=== PATIENT | male | born 1960 | race Caucasian/White ===

== ENCOUNTER 2016-10-06 09:41 | Inpatient (IN) | payer BC ==
[~2016-10-06] VITALS: Ht 170.2 cm; Wt 117.9 kg
--- NOTE | 2016-10-06 10:06 | RADRPT ---
PROCEDURE: CT Brain without. CLINICAL INDICATION: Acute neurological deficit. Facial droop and slurred speech. TECHNIQUE: A CT of the brain was performed on multidetector high-resolution CT scanner utilizing a xial sections from the skull base through the vertex without contrast. The scan was reviewed in sof t tissue brain and high frequency resolution bone algorithm windows. Images were reviewed on a high -resolution PACS workstation. One or more the following does reduction techniques were utilized: Aut omated exposure control, adjustment of the mA/ or kV according to patient's size, or use of iterativ e reconstruction technique. The exam CTDI = 42.3 mGy and the DLP = 720.23 mGy-cm. COMPARISON: None available. FINDINGS: There are subtle hypoattenuated areas in the left subinsular region in the left frontal operculum co ncerning for recent infarcts. The ventricles and sulci are mildly prominent indicative of volume loss. There is no intracranial he morrhage, mass effect or midline shift. No abnormal intra-axial or extra-axial fluid collections ar e seen. There are mild scattered foci of hypoattenuation in the white matter, which are nonspecific in etiol ogy but likely reflect chronic small vessel ischemic changes. There are mild intracranial vascular calcifications consistent with atherosclerosis. The visualized paranasal sinuses are essentially omkar ar. IMPRESSION: 1. Subtle hypoattenuated areas in the left subinsular region in the left frontal operculum concerni ng for recent infarcts. Consider brain MRI and CTA for further evaluation. 2. Mild intracranial atherosclerosis and chronic small vessel ischemic changes. 3. Mild generalized cerebral volume loss. A call report was made and above findings were discussed and acknowledged by Dr. ROSENDO POE on 10/06/2016 10:00 AM . RPTAT: HFN .Tanika Miranda MD, MD Date Time Electronically viewed and signed by .Tanika Miranda MD, MD on 10/06/2016 10:06 .N/
[2016-10-06 10:25] LABS: ADD SCAN DIFF NO
[2016-10-06] MEDS ORDERED: ASPIRIN 325 MG TAB PO ONE (10:30)
[2016-10-06 10:31] LABS: BASOPHILS % 0.3 % (0.0-2.0); EOSINOPHILS # 0.2 10^3/ul (0.0-0.5); EOSINOPHILS % 2.4 % (0.0-7.0); HEMATOCRIT 46.3 % (42.0-52.0); HEMOGLOBIN 14.9 g/dl (14.0-18.0); LYMPHOCYTES # 1.6 10^3/ul (0.8-2.9); LYMPHOCYTES % 18.2 % (15.0-51.0); MEAN CORPUSCULAR HEMOGLOBIN 28.5 pg (29.0-33.0); MEAN CORPUSCULAR HGB CONC 32.2 g/dl (32.0-37.0); MEAN CORPUSCULAR VOLUME 88.5 fl (82.0-101.0); MEAN PLATELET VOLUME 10.6 fl (7.4-10.4); MONOCYTE # 0.5 10^3/ul (0.3-0.9); MONOCYTES % 6.2 % (0.0-11.0); NEUTROPHIL # 6.3 10^3/ul (1.6-7.5); NEUTROPHILS % 72.2 % (39.0-77.0); PLATELET COUNT 328 10^3/UL (140-415); RED BLOOD COUNT 5.23 10^6/ul (4.70-6.10); RED CELL DISTRIBUTION WIDTH 13.9 % (11.5-14.5); WHITE BLOOD COUNT 8.7 10^3/ul (4.8-10.8)
[2016-10-06 10:41] LABS: BLOOD UREA NITROGEN 14 mg/dl (7-20); CALCIUM 9.4 mg/dl (8.4-10.2); CARBON DIOXIDE 30 mmol/L (21-31); GLUCOSE 144 mg/dl (70-220); POTASSIUM 4.4 mmol/L (3.5-5.1); SODIUM 140 mmol/L (135-144)
--- NOTE | 2016-10-06 10:59 | RADRPT ---
PROCEDURE: CHEST 1VW CLINICAL INDICATION: Possible stroke TECHNIQUE: Single frontal view of the chest was obtained COMPARISON: None. FINDINGS: The cardiac size is normal. Aortic vascular calcifications are demonstrated. There is no pulmonary vascular congestion. The lungs are clear. No consolidation, effusion, or pneumothorax. Mild degenerative changes of the visualized osseous structures are visualized. IMPRESSION: 1. No acute cardiopulmonary process. 2. Atherosclerosis. RPTAT:PP .Ameya Darden MD, MD Date Time Electronically viewed and signed by .Ameya Darden MD, on 10/06/2016 10:58 .V/
[2016-10-06 11:02] LABS: ANION GAP 13 (8-16); CHLORIDE 101 mmol/L (97-110)
[2016-10-06] MEDS ORDERED: LISI20TA11 PO (11:03)
[2016-10-06] MEDS ORDERED: CLOP75TA27 PO (11:04)
[2016-10-06] MEDS ORDERED: AMLO-147 PO (11:04)
[2016-10-06] MEDS ORDERED: FURO40TA4 PO (11:06)
[2016-10-06] MEDS ORDERED: MTF1000T PO (11:07)
[2016-10-06] MEDS ORDERED: POTA20TA96 PO (11:07)
[2016-10-06] MEDS ORDERED: POTA-57 PO (11:07)
[2016-10-06] MEDS ORDERED: DAPA10TA PO (11:08)
[2016-10-06] MEDS ORDERED: HYDR-3672 PO (11:08)
[2016-10-06] MEDS ORDERED: CLON-379 PO (11:08)
[2016-10-06] MEDS ORDERED: GLIP-95 PO (11:08)
[2016-10-06 11:13] LABS: INR 0.79; PT RATIO 0.9
[2016-10-06 11:19] LABS: PARTIAL THROMBOPLASTIN TIME 27.1 Sec (25.0-35.0)
[2016-10-06 11:25] LABS: TROPONIN-I < 0.012 ng/ml (0.00-0.12)
[2016-10-06] MEDS ORDERED: ONDANSETRON 4 MG INJ IV PRN ×2 (11:30→15:30)
[2016-10-06] MEDS ORDERED: ACETAMINOPHEN 325 MG TAB PO PRN (11:30)
--- NOTE | 2016-10-06 11:35 | STROKE ---
Date/Time of Note Date/Time of Note DATE: 10/06/16 TIME: 11:28 Patient Information General Patient location: emergency Arrival Date Age 55 Gender male Weight 100 kg Vital Signs Vital Signs Vital Signs Date Time Temp Pulse Resp B/P Pulse Ox O2 Delivery O2 Flow Rate FiO2 10/06/16 10:32 Nasal Cannula 2 10/06/16 09:58 72 20 133/78 99 10/06/16 09:48 98.1 Patient History Past Medical History Stroke, Diabetes, Hypertension Current Medications Allergies: Coded Allergies: Penicillins (Verified Allergy, Severe, 10/06/16) Labs Hematology Labs Hematology Test 10/06/16 10:17 White Blood Count 8.710^3/ul (4.8-10.8) Red Blood Count 5.2310^6/ul (4.70-6.10) Hemoglobin 14.9g/dl (14.0-18.0) Hematocrit 46.3% (42.0-52.0) Mean Corpuscular Volume 88.5fl (82.0-101.0) Mean Corpuscular Hemoglobin 28.5pg (29.0-33.0) Mean Corpuscular Hemoglobin Concent 32.2g/dl (32.0-37.0) Red Cell Distribution Width 13.9% (11.5-14.5) Platelet Count 19840^3/UL (140-415) Mean Platelet Volume 10.6fl (7.4-10.4) Neutrophils % 72.2% (39.0-77.0) Lymphocytes % 18.2% (15.0-51.0) Monocytes % 6.2% (0.0-11.0) Eosinophils % 2.4% (0.0-7.0) Basophils % 0.3% (0.0-2.0) Nucleated Red Blood Cells % 0.0/100WBC (0.0-0.0) Neutrophils # 6.310^3/ul (1.6-7.5) Lymphocytes # 1.610^3/ul (0.8-2.9) Monocytes # 0.510^3/ul (0.3-0.9) Eosinophils # 0.210^3/ul (0.0-0.5) Basophils # 0.010^3/ul (0.0-0.1) Nucleated Red Blood Cells # 0.010^3/ul (0.0-0.0) Chemistry Labs Chemistry Test 10/06/16 10:17 Sodium Level 140mmol/L (135-144) Potassium Level 4.4mmol/L (3.5-5.1) Chloride Level 101mmol/L (97-110) Carbon Dioxide Level 30mmol/L (21-31) Anion Gap 13 (8-16) Blood Urea Nitrogen 14mg/dl (7-20) Creatinine 1.00mg/dl (0.61-1.24) Glucose Level 144mg/dl (70-220) Calcium Level 9.4mg/dl (8.4-10.2) Troponin I < 0.012ng/ml (0.00-0.12) Coagulation Labs: Coagulation Test 10/06/16 10:17 Prothrombin Time 11.0Sec (12.2-14.2) Prothrombin Time Ratio 0.9 INR International Normalized Ratio 0.79 Activated Partial Thromboplast Time 27.1Sec (25.0-35.0) History & Physical Patient History Notes Pt Hx Reviewed History of Present Illness 55yo M presents with acute onset slurred speech at 8am. On arrival to the ED patient was noted to have slurred speech and right facial droop. Review of Systems Constitutional: no symptoms reported EENTM: no symptoms reported Respiratory: no symptoms reported Cardiovascular: no symptoms reported Gastrointestinal: no symptoms reported Genitourinary: no symptoms reported Musculoskeletal: no symptoms reported Skin: no symptoms reported Psychiatric/Neurological: no symptoms reported All Other Systems: Reviewed and Negative NIH Stroke Scale NIH Stroke Scale 1A - Level of Conciousness: 0 - Alert keenly Aeaqmuarxw2C LOC Questions: 0 - Answers both [id number] - LOC Commands: 0 - Performs both tasks2 - Best Gaze: 0 - Normal3 - Visual: 0 - No visual loss4 - Facial Palsy: 0 - No visual loss 5A - Motor Arm - Left: 0 - No [id number] - Motor Arm - Right: 0 - No [id number] - Motor Leg - Left: 0 - No [id number] - Motor Leg - Right: 0 - No drift7 - Limb Ataxia: 0 - Absent8 - Sensory: 0 - Normal9 - Best Language: 0 - No aphasia or normalDysarthria: 0 - [id number] - Extinction and inattentio: 0 - No abnormalityTotal Score: 0 Date/Time Recorded DATE: 10/06/16 TIME: 09:00 Submitted By Sheba Maguire t-PA Imaging Review Imaging Reviewed: No Date/Time Imaging Reviewed DATE: 10/06/16 TIME: 09:00 Imaging Findings No acute changes t-PA Administration Recommendation: No Weight 100 kg t-PA Recommendation Date/Time 09:00 Recommedation submitted by Sheba Maguire Reason t-PA not Recommended NIHSS=0 Recommendations Impression Diagnosis Transient ischemic attack Recommendation 55yo M presents with acute onset slurred speech and right facial droop. Neurological exam is now unremarkable, although patient still feels his speech is not entirely normal. I believe patient has had a transient ischemic attack. I recommend workup to include MRI Brain without gadolinium, MRA of the head without gadolinium, MRA of the neck with gadolinium, and transthoracic echocardiogram. I recommend aspirin 81mg daily and Plavix 75mg daily for 3 weeks then just aspirin 81mg daily. Further workup is pending the results of these tests. Diagnostic Labs: Lipid Proile Hgb A1C CMP CBC w/Diff Coags Urinaysis Therapy: Physical Therapy Speech Therapy Occupational Therapy Misc. Recommendations: Bedside Swallow Evaluation Pnumatic Compression Devices Stroke Education Smoking Education SHEBA MAGUIRE October 06, 2016 11:34
--- NOTE | 2016-10-06 13:31 | ERA ---
ER Documentation Chief Complaint Date/Time DATE: 10/06/16 TIME: 13:27 Chief Complaint FACIAL DROOP, CODE STROKE CALLED. LAST TIME SEEN AT 0800 HPI Patient is a 55-year-old male with diabetes, hypertension, and previous stroke who presents with slurred speech. His symptoms started at 8 AM. He has slurred speech and right-sided facial droop. He was at work when this happened. 911 was called and he was brought in by ambulance. He has had no treatment as of yet. A code stroke was called from the field at 9:41 AM. He is not on blood thinners other than a baby aspirin. ROS All systems reviewed and are negative except as per history of present illness. Medications Home Meds Reported Medications Dapagliflozin Propanediol (Farxiga) 10 Mg Tablet, 10 MG PO DAILY, #30 TAB 10/06/16 Hydralazine Hcl* (Hydralazine Hcl*) 50 Mg Tab, 50 MG PO Q8, #90 TAB 10/06/16 Clonidine Hcl* (Clonidine Hcl*) 0.1 Mg Tab, 0.1 MG PO BID, TAB 10/06/16 Glipizide* (Glipizide*) 10 Mg Tablet, 10 MG PO DAILY, TAB 10/06/16 Metformin* (Glucophage*) 1,000 Mg Tablet, 1000 MG PO BID, #60 TAB 10/06/16 Potassium Chloride* (Klor-Con*) 20 Meq Tabsr, 10 MEQ PO DAILY, TAB.SA 10/06/16 Furosemide* (Furosemide*) 40 Mg Tablet, 40 MG PO DAILY, TAB 10/06/16 Clopidogrel Bisulfate (Clopidogrel) 75 Mg Tablet, 75 MG PO DAILY, #30 TAB 10/06/16 Amlodipine Besylate* (Amlodipine Besylate*) 10 Mg Tablet, 10 MG PO BID, #30 TAB 10/06/16 Lisinopril* (Lisinopril*) 20 Mg Tablet, 20 MG PO BID, #30 TAB 10/06/16 Discontinued Reported Medications Potassium Chloride* (Potassium Chloride*) 20 Meq Tablet.er, 20 MEQ PO DAILY, TAB.SA 10/06/16 Allergies Allergies: Coded Allergies: Penicillins (Verified Allergy, Severe, 10/06/16) PMhx/Soc Positive for stroke, hypertension, and diabetes Medical and Surgical Hx: pt denies Surgical Hx Hx Alcohol Use: No Hx Substance Use: No Hx Tobacco Use: No Smoking Status: Never smoker FmHx Family History: diabetes Physical Exam Vitals Vital Signs Date Time Temp Pulse Resp B/P Pulse Ox O2 Delivery O2 Flow Rate FiO2 10/06/16 10:32 Nasal Cannula 2 10/06/16 09:58 72 20 133/78 99 Nasal Cannula 3.0 10/06/16 09:48 98.1 79 18 159/72 99 Physical Exam Const: No acute distress Head: Atraumatic Eyes: Normal Conjunctiva ENT: Mild right-sided facial droop Neck: Full range of motion..~ No meningismus. Resp: Clear to auscultation bilaterally Cardio: Regular rate and rhythm, no murmurs Abd: Soft, non tender, non distended. Normal bowel sounds Skin: No petechiae or rashes Back: No midline or flank tenderness Ext: No cyanosis, or edema Neur: Awake and alert, there is slurred speech, there is no weakness of the upper or lower extremities bilaterally Psych: Normal Mood and Affect Result Diagram: 10/06/16 1017 10/06/16 1017 Results 24 hrs Laboratory Tests Test 10/06/16 10:17 White Blood Count 8.710^3/ul Red Blood Count 5.2310^6/ul Hemoglobin 14.9g/dl Hematocrit 46.3% Mean Corpuscular Volume 88.5fl Mean Corpuscular Hemoglobin 28.5pg Mean Corpuscular Hemoglobin Concent 32.2g/dl Red Cell Distribution Width 13.9% Platelet Count 23660^3/UL Mean Platelet Volume 10.6fl Neutrophils % 72.2% Lymphocytes % 18.2% Monocytes % 6.2% Eosinophils % 2.4% Basophils % 0.3% Nucleated Red Blood Cells % 0.0/100WBC Neutrophils # 6.310^3/ul Lymphocytes # 1.610^3/ul Monocytes # 0.510^3/ul Eosinophils # 0.210^3/ul Basophils # 0.010^3/ul Nucleated Red Blood Cells # 0.010^3/ul Prothrombin Time 11.0Sec Prothrombin Time Ratio 0.9 INR International Normalized Ratio 0.79 Activated Partial Thromboplast Time 27.1Sec Sodium Level 140mmol/L Potassium Level 4.4mmol/L Chloride Level 101mmol/L Carbon Dioxide Level 30mmol/L Anion Gap 13 Blood Urea Nitrogen 14mg/dl Creatinine 1.00mg/dl Glucose Level 144mg/dl Hemoglobin A1c 6.9% Calcium Level 9.4mg/dl Troponin I < 0.012ng/ml Current Medications Medications (Trade) Dose Ordered Sig/Coleen Route PRN Reason Start Time Stop Time Status Last Admin Dose Admin Aspirin (Aspirin) 325 mg ONCE ONCE PO 10/06/16 10:30 10/06/16 10:31 DC 10/06/16 11:13 Ondansetron HCl (Zofran Inj) 4 mg ER BRIDGE PRN IV NAUSEA AND/OR VOMITING 10/06/16 11:30 10/07/16 11:29 Acetaminophen (Tylenol Tab) 650 mg ER BRIDGE PRN PO MILD PAIN/FEVER 10/06/16 11:30 10/07/16 11:29 Procedures/MDM EKG read by me: Rate/Rhythm: First-degree AV block at a rate of 67 Intervals: Prolonged [place] interval Impression: First-degree AV block PROCEDURE: CT Brain without. CLINICAL INDICATION: Acute neurological deficit. Facial droop and slurred speech. TECHNIQUE: A CT of the brain was performed on multidetector high-resolution CT scanner utilizing axial sections from the skull base through the vertex without contrast. The scan was reviewed in soft tissue brain and high frequency resolution bone algorithm windows. Images were reviewed on a high- resolution PACS workstation. One or more the following does reduction techniques were utilized: Automated exposure control, adjustment of the mA/ or kV according to patient's size, or use of iterative reconstruction technique. The exam CTDI = 42.3 mGy and the DLP = 720.23 mGy-cm. COMPARISON: None available. FINDINGS: There are subtle hypoattenuated areas in the left subinsular region in the left frontal operculum concerning for recent infarcts. The ventricles and sulci are mildly prominent indicative of volume loss. There is no intracranial hemorrhage, mass effect or midline shift. No abnormal intra- axial or extra-axial fluid collections are seen. There are mild scattered foci of hypoattenuation in the white matter, which are nonspecific in etiology but likely reflect chronic small vessel ischemic changes. There are mild intracranial vascular calcifications consistent with atherosclerosis. The visualized paranasal sinuses are essentially clear. IMPRESSION: 1. Subtle hypoattenuated areas in the left subinsular region in the left frontal operculum concerning for recent infarcts. Consider brain MRI and CTA for further evaluation. 2. Mild intracranial atherosclerosis and chronic small vessel ischemic changes. 3. Mild generalized cerebral volume loss. A call report was made and above findings were discussed and acknowledged by Dr. ROSENDO POE on 10/06/2016 10:00 AM . RPTAT: HFN .Tanika Miranda MD, Date Time Electronically viewed and signed by .Tanika Miranda MD, on 10/06/2016 10: 06 Patient is a 55-year-old male who presented as a possible stroke. A code stroke was called from the field at 9:41 AM. I spoke with the tele-neurologist at 9:48 AM. There was an evaluation by tele-neurology ongoing at 10:02 AM. I spoke with the tele-neurologist at 10:10 AM and we decided that TPA would not be given. I believe the patient likely had a TIA as his symptoms had improved. By the time the panel neurologist did her evaluation there was no longer any slurred speech or facial droop. The patient was given aspirin after he passed a swallow evaluation. The patient will be admitted to the care of Dr. Briceno from the panel team to a telemetry bed. He is not a candidate for TPA at this time as his symptoms have resolved. Critical Care: Time: 35 minutes excluding all billable procedures. Treatments/Evaluations: Close monitoring and treatment of unstable vital signs, cardiorespiratory, and neurologic status, while maintaining tight balance of fluid, respiratory, and cardiac interventions. Observation Note: Time: 4 hours Family Hx: Positive for diabetes Evaluation: Multiple exams showed improving symptoms and no evidence of clinical decompensation. Departure Diagnosis: Primary Impression: TIA (transient ischemic attack) Qualified Code: G45.9 - Transient cerebral ischemia, unspecified type Condition: DEEPIKA Mosley MD October 06, 2016 13:31
[2016-10-06] MEDS ORDERED: GLUCAGON 1 MG INJ IM PRN (16:30)
[2016-10-06] MEDS ORDERED: GLUCOSE GEL 15 GRAM TUBE PO PRN ×2 (16:30)
[2016-10-06] MEDS ORDERED: GLUCOSE GEL 15 GRAM TUBE BUCCAL PRN (16:30)
[2016-10-06] MEDS ORDERED: DEXTROSE 50% 50 ML SYRINGE IV PRN ×2 (16:30)
--- NOTE | 2016-10-06 17:37 | RADRPT ---
PROCEDURE: MRI Brain without contrast. CLINICAL INDICATION: Acute neurological deficit. Facial droop and slurred speech. TECHNIQUE: An MRI of the brain was performed utilizing the following sequences: Sagittal and axial T1 weighted, axial T2 weighted, axial diffusion weighted with ADC mapping, coronal GRE, and axial F LAIR. COMPARISON: Brain CT of the same day. FINDINGS: There are mild foci of restricted diffusion in the left coronal radiata and left lentiform nucleus c onsistent with acute/recent infarcts. Small T2 hyperintense foci are noted in left subinsular region which likely represent dilated periva scular spaces versus old lacunar infarcts. No hypointense signal abnormalities are seen on the GRE images to suggest the presence of blood degr adation products. There is no evidence of intracranial hemorrhage, mass effect, or midline shift. N o extra-axial fluid collections are seen. The ventricles and sulci are mildly enlarged indicative of volume loss. There are minimal foci of T2 FLAIR hyperintensity in the white matter, which are nonspecific in etio logy but likely reflect chronic small vessel ischemic changes. No abnormal intracranial vascular flow void is noted. The visualized paranasal sinuses demonstrate m ild mucosal thickening mainly in ethmoid air cells and maxillary sinuses. IMPRESSION: 1. Acute/recent infarcts in the left coronal radiata and left lentiform nucleus. 2. Minimal chronic small vessel ischemic changes. 3. Mild generalized cerebral volume loss. A call report was made and above findings were discussed and acknowledged by Dr. Anderson on 017 5:31 PM . RPTAT: QQ .Tanika Miranda MD, MD Date Time Electronically viewed and signed by .Tanika Miranda MD, MD on 10/06/2016 17:37 .N/
--- NOTE | 2016-10-06 17:55 | RADRPT ---
PROCEDURE: MRA Brain. CLINICAL INDICATION: Acute neurological deficit. TECHNIQUE: An MRA of the brain was performed without intravenous contrast utilizing the following sequences: 3-D [id number] images through the intracranial vasculature with post processed gutierrez l intensity projections in multiple planes. COMPARISON: Concurrent MRI of the brain. FINDINGS: The petrous, cavernous, and supraclinoid internal carotid artery segments are patent without evidenc e of significant stenosis. The A1 segment of left AKIKO is hypoplastic. The A1 segment of right AKIKO is patent and gives off bilateral A2 segments. The proximal anterior cerebral and middle cerebral a rteries are patent without significant stenosis. There is moderate narrowing of bilateral P2 segmen ts of posterior cerebral arteries. The intradural vertebral arteries, basilar artery and posterior c erebral arteries are patent without evidence of significant focal stenosis. No aneurysms are identif ied. IMPRESSION: 1. Moderate narrowing of bilateral P2 segments of posterior cerebral arteries. 2. Hypoplastic left A1 segment. 3. Otherwise no significant stenosis of the remainder of major intracranial arteries. A call report was made and above findings were discussed and acknowledged by Dr. Anderson on 7 5:50 PM . RPTAT: QQ .Tanika Miranda MD, MD Date Time Electronically viewed and signed by .Tanika Miranda MD, MD on 10/06/2016 17:55 .N/
--- NOTE | 2016-10-06 17:59 | RADRPT ---
PROCEDURE: MRA Neck with and without contrast. CLINICAL INDICATION: Acute neurological deficit. TECHNIQUE: An MRA of the major cervical arteries was performed utilizing axial 2D time of flight, 3-D [id number]-nvygrc through the carotid bifurcations, and dynamic contrast enhanced 3-D MR angiograph y technique. Source and MIP images were reviewed. 20 cc of Magnevist were given intravenously witho ut complication. COMPARISON: No prior studies are available for comparison. FINDINGS: The origins of the great vessels off the aortic arch are patent without significant stenosis. The c ommon carotid and internal carotid arteries are patent without hemodynamically significant stenosis by NASCET criteria. Direct measurements of vessel diameters was made in reference to measurements of the distal internal carotid artery diameter. Mild to moderate stenosis of the origin of right vert ebral artery. Otherwise the remainder of vertebral arteries are patent without high-grade stenosis. IMPRESSION: 1. Mild to moderate stenosis of the origin of right vertebral artery. 2. Otherwise no significant stenosis in the remainder of major neck arteries. A call report was made and above findings were discussed and acknowledged by Dr. Anderson on 7 5:50 PM . RPTAT: QQ .Tanika Miranda MD, MD Date Time Electronically viewed and signed by .Tanika Miranda MD, MD on 10/06/2016 17:59 .N/
[2016-10-06] MEDS: metFORMIN 500 MG TAB PO SCH (18:00)
[2016-10-06] MEDS: INSULIN ASPART [NOVOLOG] 3 ML PEN SC SCH ×2 (19:07→21:00)
--- NOTE | 2016-10-06 19:43 | HP ---
Date/Time of Note Date/Time of Note DATE: 10/06/16 TIME: 19:32 Assessment/Plan VTE Prophylaxis VTE Prophylaxis Intervention: SCD's Assessment/Plan Assessment/Plan 55 yo M with slurred speech and R sided facial droop managed for 1. Possible recurrent acute Stroke 2. HTN: controlled 3. Diabetes type 2 controlled 4. Obesity 5. Dyslipidemia PLAN: Admit tele / MRI / MRA brain and neck / 2D echo PT / OT eval / Neurology consult Screening labs for dyslipidemia, DM, Thyroid disease Continue home ASA / Plavix / Statin therapy / other meds for HTN and DM Further evaluation and treatment will be based on clinical course and findings Neurology Consult, Speech and Physical therapy consults. Supportive care PROPHYLAXIS: SCDs / Pepcid Total time spent on this evaluation >35mins Plan of care has been discussed with patient, questions answered and patient has verbalized understanding. Please review chart and notes for further information if needed. 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 Patient has a hx of HTN, DM and a prev stroke. He has been on aspirin and plavix and reports good compliance. He is being admitted for stroke workup. A code Stroke was called and patient was reviewed by teleneurology and determined not to be a candidate for TPA. His recommendations are noted and patient will be managed accordingly. ROS Constitutional: No chills, No febrile, No nausea Eyes: no complaints ENT: other (slurred speech) Respiratory: no complaints Cardiovascular: no complaints Gastrointestinal: no complaints Musculoskeletal: No back pain, No restricted range of motion Skin: No rash Neurologic: No confusion, No headache, No syncope PMH/Family/Social Past Medical History * Previous Stroke Medical History: diabetes, high cholesterol, hypertension Past Surgical History Past Surgical Hx: no surgical history Family History Significant Family History: other (Family hx of stroke) Social History Alcohol Use: none Smoking Status: Never smoker Drug Use: none Exam/Review of Systems Vital Signs Vitals Vital Signs Date Time Temp Pulse Resp B/P Pulse Ox O2 Delivery O2 Flow Rate FiO2 10/06/16 18:30 98.9 70 13 141/90 97 Room Air 3.0 Exam Exam GENERAL: Patient is alert, oriented x 3, in no apparent distress; does not appear acutely or chronically ill. Patient is able to sit up unassisted.Patient makes good eye contact, is conversant, interactive, coherent. Patient appears calm and comfortable and is able to follow commands. HEENT: Oropharynx is clear. There is no carotid bruit, no masses. Patient's pupils are equal, round and reactive to light bilaterally. Extraocular motions are intact. There is no scleral icterus. There is R sided facial asymmetry. NECK: Supple. LUNGS: Clear to auscultation bilaterally with good air entry. No Wheezes or crackles. HEART: S1, S2. No murmur, gallops or rubs. Regular rate and rhythm. ABDOMEN: Soft, nontender. Normoactive bowel sounds. There are no stigmata of chronic liver disease. BACK: no costovertebral angle tenderness. GENITOURINARY: Deferred. EXTREMITIES: No edema. There is no cyanosis, clubbing. There are 2+ pulses bilaterally distally. 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 Labs Result Diagram: 10/06/16 1017 10/06/16 1017 Medications Medications Current Medications Famotidine (Pepcid) 20 mg BID PO ; Start 10/06/16 at 21:00 Ondansetron HCl (Zofran Inj) 4 mg Q6H PRN IV NAUSEA AND/OR VOMITING; Start 10/06 at 15:30 Amlodipine Besylate (Norvasc) 10 mg BID PO ; Start 10/06/16 at 21:00 Clonidine (Catapres) 0.1 mg BID PO ; Start 10/06/16 at 21:00 Clopidogrel Bisulfate (plaVIX) 75 mg DAILY PO ; Start 10/07/16 at 09:00 Furosemide (Lasix) 40 mg DAILY PO ; Start 10/07/16 at 09:00 Glipizide (Glucotrol) 10 mg DAILY PO ; Start 10/07/16 at 09:00 Hydralazine HCl (Apresoline) 50 mg Q8 PO ; Start 10/06/16 at 22:00 Lisinopril (Zestril) 20 mg BID PO ; Start 10/06/16 at 21:00 Potassium Chloride (Klor-Con 10) 10 meq DAILY PO ; Start 10/07/16 at 09:00 Miscellaneous Information 10 mg DAILY PO ; Start 10/07/16 at 09:00; Status UNV Miscellaneous Information 1 ea NOTE XX ; Start 10/06/16 at 16:30 Glucose (Glutose) 15 gm Q15M PRN PO DECREASED GLUCOSE; Start 10/06/16 at 16:30 Glucose (Glutose) 22.5 gm Q15M PRN PO DECREASED GLUCOSE; Start 10/06/16 at 16:30 Dextrose (D50w Syringe) 25 ml Q15M PRN IV DECREASED GLUCOSE; Start 10/06/16 at 16:30 Dextrose (D50w Syringe) 50 ml Q15M PRN IV DECREASED GLUCOSE; Start 10/06/16 at 16:30 Glucagon (Glucagen) 1 mg Q15M PRN IM DECREASED GLUCOSE; Start 10/06/16 at 16:30 Glucose (Glutose) 15 gm Q15M PRN BUCCAL DECREASED GLUCOSE; Start 10/06/16 at 16: 30 Procedures Procedures PROCEDURE: CHEST 1VW CLINICAL INDICATION: Possible stroke TECHNIQUE: Single frontal view of the chest was obtained COMPARISON: None. FINDINGS: The cardiac size is normal. Aortic vascular calcifications are demonstrated. There is no pulmonary vascular congestion. The lungs are clear. No consolidation, effusion, or pneumothorax. Mild degenerative changes of the visualized osseous structures are visualized. IMPRESSION: 1. No acute cardiopulmonary process. 2. Atherosclerosis. RPTAT:PP .Ameya Darden MD, MD Date Time Electronically viewed and signed by .Ameya Darden MD, MD on 10/06/2016 10:58 .V/ CC: DEEPIKA ROBBINS MD ROCEDURE: CT Brain without. CLINICAL INDICATION: Acute neurological deficit. Facial droop and slurred speech. TECHNIQUE: A CT of the brain was performed on multidetector high-resolution CT scanner utilizing axial sections from the skull base through the vertex without contrast. The scan was reviewed in soft tissue brain and high frequency resolution bone algorithm windows. Images were reviewed on a high- resolution PACS workstation. One or more the following does reduction techniques were utilized: Automated exposure control, adjustment of the mA/ or kV according to patient's size, or use of iterative reconstruction technique. The exam CTDI = 42.3 mGy and the DLP = 720.23 mGy-cm. COMPARISON: None available. FINDINGS: There are subtle hypoattenuated areas in the left subinsular region in the left frontal operculum concerning for recent infarcts. The ventricles and sulci are mildly prominent indicative of volume loss. There is no intracranial hemorrhage, mass effect or midline shift. No abnormal intra- axial or extra-axial fluid collections are seen. There are mild scattered foci of hypoattenuation in the white matter, which are nonspecific in etiology but likely reflect chronic small vessel ischemic changes. There are mild intracranial vascular calcifications consistent with atherosclerosis. The visualized paranasal sinuses are essentially clear. IMPRESSION: 1. Subtle hypoattenuated areas in the left subinsular region in the left frontal operculum concerning for recent infarcts. Consider brain MRI and CTA for further evaluation. 2. Mild intracranial atherosclerosis and chronic small vessel ischemic changes. 3. Mild generalized cerebral volume loss. A call report was made and above findings were discussed and acknowledged by Dr. ROSENDO POE on 10/06/2016 10:00 AM . RPTAT: HFN .Tanika Miranda MD, MD Date Time Electronically viewed and signed by .Tanika Miranda MD, MD on 10/06/2016 10: 06 .N/ CC: DEEPIKA ROBBINS MD, BOLATITO M. October 06, 2016 19:42
[2016-10-06] MEDS: FAMOTIDINE 20 MG TAB PO SCH (20:10)
[2016-10-06] MEDS: AMLODIPINE 10 MG TAB PO SCH (20:10)
[2016-10-06] MEDS: LISINOPRIL 20 MG TAB PO SCH (21:48)
[2016-10-06 22:07] VITALS: TEMP 98.9
[2016-10-06 22:25] VITALS: BP 166/77; PULSE 61; RESP 19
[2016-10-06 22:56] VITALS: PULSE 55
[2016-10-06 23:08] VITALS: Ht 170.2 cm; Wt 117.9 kg
[2016-10-06 23:27] VITALS: BP 155/75; RESP 15
[2016-10-07] VITALS (9 sets, daily range): BP systolic 96–167; BP diastolic 64–86; PULSE 66–83; RESP 17–19
[2016-10-07] MEDS: INSULIN ASPART [NOVOLOG] 3 ML PEN SC SCH ×2 (08:27→11:50)
[2016-10-07] MEDS: metFORMIN 500 MG TAB PO SCH (08:28)
[2016-10-07] MEDS: LISINOPRIL 20 MG TAB PO SCH (08:30)
[2016-10-07] MEDS: AMLODIPINE 10 MG TAB PO SCH (08:30)
[2016-10-07] MEDS: FAMOTIDINE 20 MG TAB PO SCH (08:30)
[2016-10-07] MEDS ORDERED: NON-FORMULARY/PATIENT OWN MED (Dapagliflozin Propanediol (Farxiga) 10 MG) PO SCH (09:00)
[2016-10-07] MEDS ORDERED: POTASSIUM CHLORIDE (SR) 10 MEQ TAB PO SCH (09:00)
[2016-10-07] MEDS ORDERED: CLOPIDOGREL 75 MG TAB PO SCH (09:00)
[2016-10-07] MEDS ORDERED: glipiZIDE 10 MG TAB PO SCH (09:00)
[2016-10-07] MEDS ORDERED: FUROSEMIDE 40 MG TAB PO SCH (09:00)
[2016-10-07 10:31] LABS: ADD SCAN DIFF NO
[2016-10-07 10:39] LABS: BASOPHILS % 0.3 % (0.0-2.0); EOSINOPHILS # 0.2 10^3/ul (0.0-0.5); EOSINOPHILS % 1.2 % (0.0-7.0); HEMATOCRIT 47.6 % (42.0-52.0); HEMOGLOBIN 15.2 g/dl (14.0-18.0); LYMPHOCYTES # 1.8 10^3/ul (0.8-2.9); LYMPHOCYTES % 14.5 % (15.0-51.0); MEAN CORPUSCULAR HEMOGLOBIN 28.3 pg (29.0-33.0); MEAN CORPUSCULAR HGB CONC 31.9 g/dl (32.0-37.0); MEAN CORPUSCULAR VOLUME 88.6 fl (82.0-101.0); MEAN PLATELET VOLUME 10.7 fl (7.4-10.4); MONOCYTE # 0.6 10^3/ul (0.3-0.9); MONOCYTES % 5.2 % (0.0-11.0); NEUTROPHIL # 9.6 10^3/ul (1.6-7.5); NEUTROPHILS % 78.3 % (39.0-77.0); PLATELET COUNT 334 10^3/UL (140-415); RED BLOOD COUNT 5.37 10^6/ul (4.70-6.10); RED CELL DISTRIBUTION WIDTH 14.1 % (11.5-14.5); WHITE BLOOD COUNT 12.3 10^3/ul (4.8-10.8)
[2016-10-07 10:50] LABS: CREATININE 0.98 mg/dl (0.61-1.24)
[2016-10-07 10:51] LABS: BILIRUBIN,INDIRECT 0.3 mg/dl (0-1.1); BILIRUBIN,TOTAL 0.3 mg/dl (0.2-1.3); CALCIUM 9.6 mg/dl (8.4-10.2); PHOSPHORUS 2.9 mg/dl (2.5-4.9); TOTAL PROTEIN 7.7 g/dl (6.1-8.1)
[2016-10-07 10:52] LABS: CHOL/HDL RATIO 5.5 RATIO
[2016-10-07 11:12] LABS: ALBUMIN 4.3 g/dl (3.3-4.9); POTASSIUM 4.2 mmol/L (3.5-5.1)
[2016-10-07 11:58] LABS: THYROID STIMULATING HORMONE 1.41 MIU/L (0.465-4.680)
[2016-10-07] MEDS ORDERED: [UNRECOGNIZED DRUG - REMARK] XX SCH (12:00)
--- NOTE | 2016-10-07 12:28 | CONS ---
Date/Time of Note Date/Time of Note DATE: 10/07/16 TIME: 12:16 Assessment/Plan Assessment/Plan Chief Complaint/Hosp Course 55 year old male with history of HTN, DM, obesity, prior smoker admitted with right facial droop, mild right UE weakness with acute left lentiform nucleus, left villasenor radiata infarction. Etiology is likely small vessel disease due to risk factors. Recommendations: -skilled nursing blood pressure goal <130/90 for lacunar stroke with diabetes -continue aspirin 81 mg and plavix 75 mg, given previous stroke likely related to intracranial atherosclerosis would continue dual antiplatelet therapy -initiate moderate intensity statin Lipitor 40 mg qhs for secondary stroke prevention, intracranial atherosclerosis -await ECHO results, will also order LE Duplex to r/ possibility of DVT -encouraged weight loss, exercise, dietary modification -speech/swallow evaluation completed, to be reevaluated tomorrow -DVT ppx -will require follow up with his outpatient neurologist upon discharge recommendations discussed with patient and his at bedside Problems: Consultation Date/Type/Reason Admit Date/Time 10/06/16 Date of Consultation: October 07, 2016 Type of Consultation: Neurology Reason for Consultation CVA Referring Provider: LOVELY HERNANDEZ Hx of Present Illness 55 year old male previous smoker with history of HTN, DM, morbid obesity, psoriasis admitted yesterday after a sudden onset of slurred speech with right facial droop. 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 Overnight symptoms have progressed and he has moderate dysarthria with right lower facial droop with mild pronator drift on right arm. Patient reports history of a stroke 1 year prior, at that time he developed diplopia with left sided weakness presumably a brainstem infarction. 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 MRI Brain shows acute infarction left vlilasenor radiata, left lentiform nucleus MRA Head: moderate bilateral P2 stenosis, right vertebral stenosis MRA Neck: no carotid stenosis LDL: 72 HBA1C: 6.9% ECHO result: pending right facial droop slurred speech Eyes: no complaints ENT: other (slurred speech) Respiratory: no complaints Cardiovascular: no complaints Gastrointestinal: no complaints Musculoskeletal: No back pain, No restricted range of motion Skin: No rash Neurologic: No confusion, No headache, No syncope Past Medical History Medical History: diabetes, high cholesterol, hypertension Past Surgical History Past Surgical Hx: no surgical history Social History Alcohol Use: none Smoking Status: Former smoker Drug Use: none Exam/Review of Systems Vital Signs Vitals Vital Signs Date Time Temp Pulse Resp B/P Pulse Ox O2 Delivery O2 Flow Rate FiO2 10/07/16 11:22 97.5 79 17 144/84 95 10/06/16 22:25 Room Air 10/06/16 22:07 3.0 Exam awake and alert oriented x3 appears comfortable diffuse patchy plaques from psoriasis throughout UE/LE CN; VALERIANO, VFF, EOMI, no nystagmus, V1-3 intact, right lower facial droop palate upgoing uvula midlien scm/trap intact Motor : very slight right pronator drift in right finger tips, otherwise strength is 5/5 Sensory: intact throughout to PP, LT Coordination: no ataxia on FTN testing Results Result Diagram: 10/07/16 1015 10/07/16 1015 Results 24 hrs Laboratory Tests Test 10/06/16 18:56 10/06/16 21:45 10/07/16 08:14 10/07/16 10:15 Bedside Glucose 216 130 144 White Blood Count 12.3 #H Red Blood Count 5.37 Hemoglobin 15.2 Hematocrit 47.6 Mean Corpuscular Volume 88.6 Mean Corpuscular Hemoglobin 28.3 L Mean Corpuscular Hemoglobin Concent 31.9 L Red Cell Distribution Width 14.1 Platelet Count 334 Mean Platelet Volume 10.7 H Neutrophils % 78.3 H Lymphocytes % 14.5 L Monocytes % 5.2 Eosinophils % 1.2 Basophils % 0.3 Nucleated Red Blood Cells % 0.0 Neutrophils # 9.6 H Lymphocytes # 1.8 Monocytes # 0.6 Eosinophils # 0.2 Basophils # 0.0 Nucleated Red Blood Cells # 0.0 Sodium Level 139 Potassium Level 4.2 Chloride Level 103 Carbon Dioxide Level 27 Anion Gap 13 Blood Urea Nitrogen 12 Creatinine 0.98 Glucose Level 174 Calcium Level 9.6 Phosphorus Level 2.9 Magnesium Level 2.0 Total Bilirubin 0.3 Direct Bilirubin 0.00 Indirect Bilirubin 0.3 Aspartate Amino Transf (AST/SGOT) 22 Alanine Aminotransferase (ALT/SGPT) 39 Alkaline Phosphatase 86 Total Protein 7.7 Albumin 4.3 Triglycerides Level 371 H Cholesterol Level 178 LDL Cholesterol, Calculated 72 HDL Cholesterol 32 Cholesterol/HDL Ratio 5.5 Thyroid Stimulating Hormone (TSH) 1.410 Medications Medications Current Medications Famotidine (Pepcid) 20 mg BID PO Last administered on 10/07/16 08:30; Admin Dose 20 MG; Start 10/06/16 at 21:00 Ondansetron HCl (Zofran Inj) 4 mg Q6H PRN IV NAUSEA AND/OR VOMITING; Start 10/06 at 15:30 Amlodipine Besylate (Norvasc) 10 mg BID PO Last administered on 10/06/16 20:10 ; Admin Dose 10 MG; Start 10/06/16 at 21:00 Clonidine (Catapres) 0.1 mg BID PO Last administered on 10/06/16 20:10; Admin Dose 0.1 MG; Start 10/06/16 at 21:00 Clopidogrel Bisulfate (plaVIX) 75 mg DAILY PO Last administered on 10/07/16 08: 30; Admin Dose 75 MG; Start 10/07/16 at 09:00 Furosemide (Lasix) 40 mg DAILY PO Last administered on 10/07/16 08:29; Admin Dose 40 MG; Start 10/07/16 at 09:00 Glipizide (Glucotrol) 10 mg DAILY PO Last administered on 10/07/16 08:29; Admin Dose 10 MG; Start 10/07/16 at 09:00 Hydralazine HCl (Apresoline) 50 mg Q8 PO Last administered on 10/07/16 06:20; Admin Dose 50 MG; Start 10/06/16 at 22:00 Lisinopril (Zestril) 20 mg BID PO Last administered on 10/06/16 21:48; Admin Dose 20 MG; Start 10/06/16 at 21:00 Potassium Chloride (Klor-Con 10) 10 meq DAILY PO Last administered on 10/07/16 08:29; Admin Dose 10 MEQ; Start 10/07/16 at 09:00 Miscellaneous Information 10 mg DAILY PO ; Start 10/07/16 at 09:00; Status UNV Miscellaneous Information 1 ea NOTE XX ; Start 10/06/16 at 16:30 Glucose (Glutose) 15 gm Q15M PRN PO DECREASED GLUCOSE; Start 10/06/16 at 16:30 Glucose (Glutose) 22.5 gm Q15M PRN PO DECREASED GLUCOSE; Start 10/06/16 at 16:30 Dextrose (D50w Syringe) 25 ml Q15M PRN IV DECREASED GLUCOSE; Start 10/06/16 at 16:30 Dextrose (D50w Syringe) 50 ml Q15M PRN IV DECREASED GLUCOSE; Start 10/06/16 at 16:30 Glucagon (Glucagen) 1 mg Q15M PRN IM DECREASED GLUCOSE; Start 10/06/16 at 16:30 Glucose (Glutose) 15 gm Q15M PRN BUCCAL DECREASED GLUCOSE; Start 10/06/16 at 16: 30 Miscellaneous Information (*Order Clarification Bulletin) MEDICATION REQUIRES CLARIFICATION: Q8H XX ; Start 10/07/16 at 12:00 Atorvastatin Calcium (Lipitor) 40 mg HS PO ; Start 10/07/16 at 21:00; Status UNGABINO BAEZ MD October 07, 2016 12:26
[2016-10-07] MEDS ORDERED: ATOR40TA68 PO (12:38)
--- NOTE | 2016-10-07 14:39 | RADRPT ---
Echocardiogram Report Patient Name: BRIEN BARGER Gender: Male Date: 1960 Study Date: 07-Oct-2016 Election Judge: Shahnaz Call [facility] [employer] [facility] Ref. Physician: LOVELY HERNANDEZ Quality: Good Procedures: Transthoracic echocardiogram with complete 2D, M-Mode, and doppler examination. Indications: stroke. 2D/M Mode Doppler Measurement Value Normal Ranges Measurement Value Normal Ranges LVIDd 2D 5.8 3.5 - 5.6 cm LVOT Peak Hermes 1.1 m/sec LVIDs 2D 2.9 2.1 - 4.1 cm LVOT Peak PG 4.8 mmHg LVPWd 2D 1.0 0.6 - 1.1 cm IVSd 2D 0.9 0.6 - 1.1 cm AoR Diam 2D 3.2 2.0 - 3.7 cm EDV 2D 169.5 cm3 ESV 2D 25.0 cm3 LA Dimen 2D 4.1 2.3 - 4.0 cm Findings Left Ventricle: Normal left ventricular systolic function. Normal left ventricular cavity size. Normal left ventricular wall thickness. Ejection fraction is visually estimated at 65 %. Abnormal Diastolic Function. Right Ventricle: Normal right ventricular size. Normal right ventricular systolic function. Left Atrium: There is mild enlargement of left atrium. Right Atrium: The right atrium is normal in size. Mitral Valve: Normal appearance and function of the mitral valve with trace physiologic regurgitation. Aortic Valve: Normal appearance of the aortic valve. No significant aortic stenosis or insufficiency. Tricuspid Valve: Normal appearance and function of the tricuspid valve with trace physiologic regurgitation. Pulmonic Valve: Pulmonic valve not well visualized. Pericardium: Normal pericardium with no significant pericardial effusion. Aorta: Normal aortic root. IVC: Normal size and normal respiratory collapse consistent with normal right atrial pressure. Conclusions 1.Normal left ventricular systolic function. Normal left ventricular cavity size. Normal left ventricular wall thickness. Ejection fraction is visually estimated at 65 %. Abnormal Diastolic Function. 2.Normal right ventricular size. Normal right ventricular systolic function. 3.There is mild enlargement of left atrium. 4.The right atrium is normal in size. 5.No significant valvular stenosis or regurgitation seen. 6.Normal pericardium with no significant pericardial effusion. Electronically Signed By: Luke Bowie 07-Oct-2016 14:38:19 -0700 Patient Name: BRIEN BARGER Study Date: 07-Oct-2016 [id number]
--- NOTE | 2016-10-07 15:11 | PDOCDIS ---
Discharge Instructions DIAGNOSIS Discharge Diagnosis: Acute stroke. CONDITION Patient Condition: Stable HOME CARE INSTRUCTIONS: Diet Instructions: Low Fat /CholesterolSpecial Diet: Carbohydrate controlled FOLLOW UP/APPOINTMENTS Appointments Follow-up with your neurologist at the earliest. OTHER ORDERS: Other Orders: 1. Carbohydrate controlled, low-cholesterol diet. 2. Activities as tolerated. 3. Take medications as per prescription. Take aspirin plus Plavix. 4. Please call 911 or go to the nearest emergency room if you have any sudden onset of focal weakness or speech disturbances or chest pain. EDGAR RAMOS NP October 07, 2016 15:11
[2016-10-07] MEDS ORDERED: ASPI-664 PO (15:27)
--- NOTE | 2016-10-07 15:39 | RADRPT ---
PROCEDURE: US Lower extremity Venous. CLINICAL INDICATION: Bilateral lower extremity edema TECHNIQUE: Multiple sonographic images of the bilateral lower extremity deep venous system was obt ained utilizing grayscale, color-flow, compressive sonography and doppler imaging with augmentation. The images were reviewed on a PACS workstation. COMPARISON: None. FINDINGS: There is normal compressibility and flow within the bilateral common femoral, femoral , posterior ti bial , peroneal and popliteal veins. RPTAT: AA IMPRESSION: No sonographic evidence for deep venous thrombosis. .Kalyan Dawson MD, MD Date Time Electronically viewed and signed by .Kalyan Dawson MD, on 10/07/2016 15:38 .S/
--- NOTE | 2016-10-07 16:19 | DS ---
DATE OF ADMISSION: 10/06/2016 DATE OF DISCHARGE: 10/07/2016 FINAL DIAGNOSES: 1. Acute infarct of the left villasenor radiata and left lentiform nucleus. 2. Essential hypertension. 3. Diastolic heart failure with no evidence of exacerbation. 4. Dyslipidemia. 5. Type 2 diabetes mellitus. Hemoglobin A1c 6.9. 6. Morbid obesity. BMI 40.7 kilograms per meter squared. CONSULTATIONS: Dr. Lizette Coppola, Neurology. 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 The patient was brought to the emergency room because of a sudden onset of speech disturbance with right facial droop. A code stroke was initiated. The patient was seen by a tele neurologist. The tele neurologist recommended no TPA on this patient. The patient was admitted to inpatient setting for further evaluation. The patient underwent a brain MRI that showed acute infarct of the left villasenor radiata and left lentiform nucleus. The patient was maintained on dual antiplatelet therapy and statins. The patient underwent a neck MRA that showed mild to moderate stenosis of the origin of the right vertebral artery with no significant stenosis in the remainder of the major neck arteries. The patient underwent a 2D echocardiogram that showed ejection fraction of 65% with abnormal diastolic function. The patient had no evidence of any congestive heart failure exacerbation. The patient has known history of diabetes. The patient's hemoglobin A1c was found to be 6.9. The patient's random blood glucose was fairly well controlled. The patient has history of dyslipidemia. The patient' s fasting lipid panel shows suboptimal levels including very high triglycerides. The patient was maintained on statins for the same. The patient was maintained on antihypertensives for his underlying hypertension. The patient was seen by speech therapy. Speech therapy recommended pureed diet and upgrade to a solid diet if no significant problems. The patient was able to tolerate a solid diet without any significant problems. The patient did not require any physical therapy since the patient had no problems with mobility. The patient had a stable hospital course. The patient has outpatient neurologist close to his residence, whom he will be seeing in the near future. DISCHARGE DISPOSITION AND PLAN: The patient will be discharged home today. The patient was instructed to follow a carbohydrate controlled low cholesterol diet. The patient was instructed to resume activities as tolerated. The patient was instructed to take medications including aspirin plus Plavix. He was instructed to please call 911 or go to the nearest emergency room if he has any sudden onset of focal weakness or speech disturbances or chest pain. The patient verbalized understanding of the discharge instructions. CONDITION AT DISCHARGE: Stable. DISCHARGE MEDICATIONS: 1. Atorvastatin 40 mg p.o. at bedtime. 2. Amlodipine 10 mg p.o. b.i.d. 3. Clonidine 0.1 mg p.o. b.i.d. 4. Aspirin 81 mg p.o. daily. 5. Farxiga 10 mg p.o. daily. 6. Lasix 40 mg p.o. daily. 7. Glipizide 10 mg p.o. daily. 8. Hydralazine 50 mg p.o. at bedtime. 9. Lisinopril 20 mg p.o. b.i.d. 10. Metformin 1000 mg p.o. b.i.d. 11. Potassium chloride 10 mEq p.o. daily. PERTINENT LABORATORY AND DIAGNOSTIC DATA: 1. Brain CT scan. Subtle hypoattenuating areas in the left subinsular region, the left frontal operculum concerning for recent infarct. 2. Brain MRI. Acute/recent infarcts in the left villasenor radiata and left lentiform nucleus. 3. Brain MRI with MRA. Moderate narrowing of bilateral P2 segments of posterior cerebral arteries. Hypoplastic left A1 segment. 4. Neck MRA. Mild to moderate stenosis of the origin of the right vertebral artery. Otherwise, no significant stenosis in the remainder of major neck arteries. 5. Latest CBC: WBC 12.3, hemoglobin 15.8, hematocrit 47.6, platelet count 334. 6. Latest BMP: Sodium 139, potassium 4.0, chloride 103, carbon dioxide 27, anion gap 13, BUN 12, creatinine 0.98, glucose 174, calcium 9.6, phosphorus 2.9 , magnesium 2.0. 7. Hemoglobin A1c 6.9. 8. Fasting lipid panel: Triglycerides 70, total cholesterol 178, LDL 72, AST of 32. At this time, I would like to thank Dr. Coppola for seeing the patient and providing clinical recommendations. The case and management of this patient was fully discussed with Dr. Hernandez. Approximately 40 minutes was spent on coordinating the discharge on this patient. EDGAR HERNANDEZ MD, AM/HARJINDER Conf#: [id number] DID#: [id number] MTDD
[2016-10-07] MEDS ORDERED: ATORVASTATIN 40 MG TAB PO SCH (21:00)
== END 2016-10-07 17:31 | disposition home or self-care (01) | DRG 65 ==
LOC: E/R 09:41 → TEL 11:13
PROVIDERS: ADMIT Family Medicine; ATTEND Family Medicine
DX: I63.9 Cerebral infarction, unspecified (principal); Z68.41 Body mass index [BMI] 40.0-44.9, adult; I50.30 Unspecified diastolic (congestive) heart failure; I10 Essential (primary) hypertension; E78.5 Hyperlipidemia, unspecified; E11.9 Type 2 diabetes mellitus without complications; E66.01 Morbid (severe) obesity due to excess calories
CPT/HCPCS: 70450; 70544; 70548; 70551; 71010; 80048; 80061; 80076; 82962; 83036; 83735; 84100; 84443; 84484; 85025; 85610; 85730; 92610; 93005; 93306; 93970; 96372; J1815